=== PATIENT | male | born 1980 | race Hispanic/Latino ===

== ENCOUNTER 2017-04-04 10:01 | Emergency (ER) | payer OTHER ==
[2017-04-04 11:07] LABS: Mean Corpuscular HGB Conc 36 % (32-34); Mean Corpuscular Hemoglobin 37 pg (28-32); Mean Corpuscular Volume 104 fl (84-94); Platelet Count 239 K/mm3 (140-440); Red Blood Count 5.05 M/mm3 (3.65-5.03); Red Cell Distribution Width 14.9 % (13.2-15.2)
[2017-04-04 11:20] LABS: Hematocrit 52.7 % (35.5-45.6); Hemoglobin 18.7 gm/dl (11.8-15.2)
[2017-04-04 11:29] LABS: Albumin 4.4 g/dL (3.9-5); BUN/Creatinine Ratio 18; Blood Urea Nitrogen 9 mg/dL (9-20); Calcium 8.9 mg/dL (8.4-10.2); Hemolysis Index 97
[2017-04-04 11:31] LABS: Alanine Aminotransferase 91 units/L (7-56); Bilirubin,Direct < 0.2 mg/dL (0-0.2)
[2017-04-04] MEDS ORDERED: HALDOL IM PRN (12:02)
[2017-04-04] MEDS ORDERED: ATIVAN IM PRN (12:02)
[2017-04-04 13:03] LABS: Bilirubin,Urine NEG (Negative); Blood,Urine NEG (Negative); Color,Urine Yellow (Yellow); Protein,Urine <15 mg/dL mg/dL (Negative); RBC,Urine < 1.0 /HPF (0.0-6.0); WBC,Urine < 1.0 /HPF (0.0-6.0)
[2017-04-04 13:11] LABS: Amphetamine Screen,Urine PRESUMPTIVE NEGATIVE; Benzodiazepines Screen,Urine PRESUMPTIVE NEGATIVE; Cannabinoid Screen,Urine PRESUMPTIVE NEGATIVE; Cocaine Screen,Urine PRESUMPTIVE NEGATIVE; Methadone Screen,Urine PRESUMPTIVE NEGATIVE; Opiate Screen,Urine PRESUMPTIVE NEGATIVE
--- NOTE | 2017-04-04 13:26 | Emergency Department Report ---
ED General Adult HPI - General Chief complaint: Psych Stated complaint: BLOOD IN STOOL/HAND SWELLING Time Seen by Provider: 04/04/17 12:59 Source: patient Mode of arrival: Ambulatory Limitations: Other (patient has alcohol intoxication on board. Patient is a poor historian) - History of Present Illness Initial comments: This is a 37-year-old male who was previously unknown to this provider. He presents to the ER with an initial complaint of alcohol intoxication. He also endorses intermittent rectal bleeding for years. He also endorses intermittent swelling of his leg for years. He cannot describe exacerbating or relieving factors. He also complains of suicidality which he is indicating is chronic. -: week(s), month(s), year(s) Location: left, right, lower extremity Improves with: none Worsens with: none Associated Symptoms: weakness. denies: chest pain, cough, diaphoresis, fever/ chills, loss of appetite, malaise, nausea/vomiting, shortness of breath, syncope - Related Data Allergies Allergy/AdvReac Type Severity Reaction Status Date / Time No Known Allergies Allergy Unverified 04/04/17 10:31 ED Review of Systems ROS: Stated complaint: BLOOD IN STOOL/HAND SWELLING Other details as noted in HPI ED Past Medical Hx - Past Medical History Previous Medical History?: Yes Hx Hypertension: Yes Additional medical history: Hx of anxiety - Surgical History Past Surgical History?: No - Social History Smoking Status: Current Every Day Smoker Substance Use Type: Alcohol ED Physical Exam - General Limitations: Other (patient has alcohol intoxication on board) General appearance: alert, appears intoxicated - Head Head exam: Present: atraumatic, normocephalic - Eye Eye exam: Present: normal appearance, EOMI. Absent: nystagmus - ENT ENT exam: Present: normal exam, normal orophraynx, mucous membranes moist, normal external ear exam - Neck Neck exam: Present: normal inspection, full ROM - Respiratory Respiratory exam: Present: normal lung sounds bilaterally. Absent: respiratory distress - Cardiovascular Cardiovascular Exam: Present: normal rhythm, tachycardia, normal heart sounds. Absent: systolic murmur, diastolic murmur, rubs, gallop - GI/Abdominal GI/Abdominal exam: Present: soft, normal bowel sounds. Absent: distended, tenderness, guarding, rebound, rigid, pulsatile mass - Rectal Rectal exam: Present: normal inspection, normal rectal tone, heme (-) stool - Extremities Exam Extremities exam: Present: normal inspection, full ROM, normal capillary refill. Absent: pedal edema, joint swelling, calf tenderness - Back Exam Back exam: Present: normal inspection, full ROM. Absent: tenderness, CVA tenderness (R), paraspinal tenderness, vertebral tenderness - Neurological Exam Neurological exam: Present: CN II-XII intact, normal gait, other (Extraocular movements intact. Tongue midline. No facial droop. Facial sensation intact to light touch in the V1, V2, V3 distribution bilaterally. 5 and 5 strength in 4 extremities.. Sensation is intact to light touch in 4 extremities.). Absent : motor sensory deficit - Psychiatric Psychiatric exam: Present: anxious, suicidal ideation. Absent: homicidal ideation - Skin Skin exam: Present: warm, dry, intact, normal color. Absent: rash ED Course Vital Signs 04/04/17 10:24 Temperature 97.4 F L Pulse Rate 114 H Respiratory 20 Rate Blood Pressure 203/137 O2 Sat by Pulse 94 Oximetry - Reevaluation(s) Reevaluation #1: 04/04/17 15:32 Differential diagnosis, including but not limited to: Intracranial injury, alcohol intoxication, active bleeding, anal fissure, dependent edema Assessment and plan: 37-year-old male with multiple complaints which has been present for months to years. Objectively speaking, there is no discernible edema or palpable cord on his lower extremities, no anal fissures ejected, no rectal bleeding is detected on exam, patient guaiac-negative. Noncontrast CT scan of the brain is cervical spine negative, laboratory studies unremarkable, serum toxicology screen unremarkable. Patient endorsed some passive suicidality. He is placed on a 1013. Patient observed in the ER for hours without clinical decompensation, he was given Haldol and Ativan to facilitate cooperation and diagnostic workup. At this point in time, there does not appear to be in immediate medical contraindication to psychiatric admission/evaluation, consultation. ED Medical Decision Making - Lab Data Result diagrams: 04/04/17 10:46 04/04/17 10:46 Vital Signs 04/04/17 10:24 Temperature 97.4 F L Pulse Rate 114 H Respiratory 20 Rate Blood Pressure 203/137 O2 Sat by Pulse 94 Oximetry Lab Results 04/04/17 04/04/17 04/04/17 Range/Units 10:46 10:46 10:46 WBC 8.0 (4.5-11.0) K/mm3 RBC 5.05 H (3.65-5.03) M/mm3 Hgb 18.7 H (11.8-15.2) gm/dl Hct 52.7 H (35.5-45.6) % MCV 104 H (84-94) fl MCH 37 H (28-32) pg MCHC 36 H (32-34) % RDW 14.9 (13.2-15.2) % Plt Count 239 (140-440) K/mm3 Sodium 143 (137-145) mmol/L Potassium 4.3 (3.6-5.0) mmol/L Chloride 100.2 (98-107) mmol/L Carbon Dioxide 26 (22-30) mmol/L Anion Gap 21 mmol/L BUN 9 (9-20) mg/dL Creatinine 0.5 L (0.8-1.5) mg/dL Estimated GFR > 60 ml/min BUN/Creatinine Ratio 18 % Glucose 95 (75-100) mg/dL Calcium 8.9 (8.4-10.2) mg/dL Total Bilirubin 0.40 (0.1-1.2) mg/dL Direct Bilirubin < 0.2 (0-0.2) mg/dL Indirect Bilirubin 0.2 mg/dL AST 91 H (5-40) units/L ALT 91 H (7-56) units/L Alkaline Phosphatase 126 (35-129) units/L Total Creatine Kinase (55-170) units/L Total Protein 7.6 (6.3-8.2) g/dL Albumin 4.4 (3.9-5) g/dL Albumin/Globulin Ratio 1.4 % Urine Color (Yellow) Urine Turbidity (Clear) Urine pH (5.0-7.0) Ur Specific [place] (1.003-1.030) Urine Protein (Negative) mg/dL Urine Glucose (UA) (Negative) mg/dL Urine Ketones (Negative) mg/dL Urine Blood (Negative) Urine Nitrite (Negative) Urine Bilirubin (Negative) Urine Urobilinogen (<2.0) mg/dL Ur Leukocyte Esterase (Negative) Urine WBC (Auto) (0.0-6.0) /HPF Urine RBC (Auto) (0.0-6.0) /HPF U Epithel Cells (Auto) (0-13.0) /HPF Salicylates (2.8-20.0) mg/dL Urine Opiates Screen Urine Methadone Screen Acetaminophen (10.0-30.0) ug/mL Ur Barbiturates Screen Ur Phencyclidine Scrn Ur Amphetamines Screen U Benzodiazepines Scrn Urine Cocaine Screen U Marijuana (THC) Screen Drugs of Abuse Note Plasma/Serum Alcohol (0-0.07) % Blood Type O POSITIVE Antibody Screen Negative 04/04/17 04/04/17 04/04/17 Range/Units 10:46 10:46 10:46 WBC (4.5-11.0) K/mm3 RBC (3.65-5.03) M/mm3 Hgb (11.8-15.2) gm/dl Hct (35.5-45.6) % MCV (84-94) fl MCH (28-32) pg MCHC (32-34) % RDW (13.2-15.2) % Plt Count (140-440) K/mm3 Sodium (137-145) mmol/L Potassium (3.6-5.0) mmol/L Chloride (98-107) mmol/L Carbon Dioxide (22-30) mmol/L Anion Gap mmol/L BUN (9-20) mg/dL Creatinine (0.8-1.5) mg/dL Estimated GFR ml/min BUN/Creatinine Ratio % Glucose (75-100) mg/dL Calcium (8.4-10.2) mg/dL Total Bilirubin (0.1-1.2) mg/dL Direct Bilirubin (0-0.2) mg/dL Indirect Bilirubin mg/dL AST (5-40) units/L ALT (7-56) units/L Alkaline Phosphatase (35-129) units/L Total Creatine Kinase (55-170) units/L Total Protein (6.3-8.2) g/dL Albumin (3.9-5) g/dL Albumin/Globulin Ratio % Urine Color (Yellow) Urine Turbidity (Clear) Urine pH (5.0-7.0) Ur Specific [place] (1.003-1.030) Urine Protein (Negative) mg/dL Urine Glucose (UA) (Negative) mg/dL Urine Ketones (Negative) mg/dL Urine Blood (Negative) Urine Nitrite (Negative) Urine Bilirubin (Negative) Urine Urobilinogen (<2.0) mg/dL Ur Leukocyte Esterase (Negative) Urine WBC (Auto) (0.0-6.0) /HPF Urine RBC (Auto) (0.0-6.0) /HPF U Epithel Cells (Auto) (0-13.0) /HPF Salicylates < 0.3 L (2.8-20.0) mg/dL Urine Opiates Screen Urine Methadone Screen Acetaminophen < 15.0 (10.0-30.0) ug/mL Ur Barbiturates Screen Ur Phencyclidine Scrn Ur Amphetamines Screen U Benzodiazepines Scrn Urine Cocaine Screen U Marijuana (THC) Screen Drugs of Abuse Note Plasma/Serum Alcohol 0.34 H (0-0.07) % Blood Type Antibody Screen 04/04/17 04/04/17 04/04/17 Range/Units 10:46 Unknown Unknown WBC (4.5-11.0) K/mm3 RBC (3.65-5.03) M/mm3 Hgb (11.8-15.2) gm/dl Hct (35.5-45.6) % MCV (84-94) fl MCH (28-32) pg MCHC (32-34) % RDW (13.2-15.2) % Plt Count (140-440) K/mm3 Sodium (137-145) mmol/L Potassium (3.6-5.0) mmol/L Chloride (98-107) mmol/L Carbon Dioxide (22-30) mmol/L Anion Gap mmol/L BUN (9-20) mg/dL Creatinine (0.8-1.5) mg/dL Estimated GFR ml/min BUN/Creatinine Ratio % Glucose (75-100) mg/dL Calcium (8.4-10.2) mg/dL Total Bilirubin (0.1-1.2) mg/dL Direct Bilirubin (0-0.2) mg/dL Indirect Bilirubin mg/dL AST (5-40) units/L ALT (7-56) units/L Alkaline Phosphatase (35-129) units/L Total Creatine Kinase 54 L (55-170) units/L Total Protein (6.3-8.2) g/dL Albumin (3.9-5) g/dL Albumin/Globulin Ratio % Urine Color Yellow (Yellow) Urine Turbidity Clear (Clear) Urine pH 5.0 (5.0-7.0) Ur Specific [place] 1.018 (1.003-1.030) Urine Protein <15 mg/dl (Negative) mg/dL Urine Glucose (UA) Neg (Negative) mg/dL Urine Ketones Neg (Negative) mg/dL Urine Blood Neg (Negative) Urine Nitrite Neg (Negative) Urine Bilirubin Neg (Negative) Urine Urobilinogen 4.0 (<2.0) mg/dL Ur Leukocyte Esterase Neg (Negative) Urine WBC (Auto) < 1.0 (0.0-6.0) /HPF Urine RBC (Auto) < 1.0 (0.0-6.0) /HPF U Epithel Cells (Auto) 1.0 (0-13.0) /HPF Salicylates (2.8-20.0) mg/dL Urine Opiates Screen Presumptive negative Urine Methadone Screen Presumptive negative Acetaminophen (10.0-30.0) ug/mL Ur Barbiturates Screen Presumptive negative Ur Phencyclidine Scrn Presumptive negative Ur Amphetamines Screen Presumptive negative U Benzodiazepines Scrn Presumptive negative Urine Cocaine Screen Presumptive negative U Marijuana (THC) Screen Presumptive negative Drugs of Abuse Note Disclamer Plasma/Serum Alcohol (0-0.07) % Blood Type Antibody Screen - EKG Data 04/04/17 15:31 Normal sinus, 96 bpm, normal axis, QTC slightly prolonged, T-wave inversion V2, not having chest pain, not consistent with a STEMI - Radiology Data Radiology results: report reviewed, image reviewed Noncontrast CT scan of the brain and cervical spine negative for acute disease Critical care attestation.: If time is entered above; I have spent that time in minutes in the direct care of this critically ill patient, excluding procedure time. ED Disposition Clinical Impression: Alcohol intoxication, Medical clearance for psychiatric admission Disposition: [id number]/[id number] PSY HOSP/PSY UNIT Is pt being admited?: No Does the pt Need Aspirin: No Condition: Good Referrals: PRIMARY CARE, [Primary Care Provider] - 3-5 Days
--- NOTE | 2017-04-04 14:00 | Cat Scan Report ---
CT HEAD WITHOUT CONTRAST: HISTORY: Hypertension, pain. TECHNIQUE: Sequential 2.5mm CT images. COMPARISON: none. FINDINGS: Cerebral Parenchyma: Within normal limits. Cerebellum: Within normal limits. Brainstem: Within normal limits. Ventricles: Normal. Sella: Normal. Extra-axial spaces: Normal. Basal Cisterns: Normal. Intracranial Hemorrhage: None. Midline Shift: None. Calvarium: Normal. Sinuses: Normal. Mastoid Air Cells: Normal. Visualized Orbits: Normal. IMPRESSION: Cranial CT scan within normal limits.
--- NOTE | 2017-04-04 14:01 | Cat Scan Report ---
CT SCAN OF THE CERVICAL SPINE: HISTORY: Hypertension, pain. TECHNIQUE: Contiguous 1.25 mm axial images of the cervical spine were obtained. Sagittal and coronal reformatted images. FINDINGS: There is normal alignment of the cervical spine. The body, pedicles and posterior ligaments appear normal. No evidence of fracture or subluxation is seen. Moderate degenerative disc disease is noted at C6-7. The remaining levels are within normal limits. The spinal canal appears normal. The prevertebral soft tissues appear normal. IMPRESSION: Degenerative disc disease at C6-7. No acute process is noted.
[2017-04-05] MEDS ORDERED: CATAPRES PO ONE (08:25)
[2017-04-05] MEDS ORDERED: CATAPRES ONE (08:35)
--- NOTE | 2017-04-05 12:40 | Consultation ---
History of Present Illness - Reason for Consult Consult date: 04/05/17 Reason for consult: Mental Health Evaluation Requesting physician: MELISSA CEDENO - Chief Complaint Chief complaint: "I can quick drinking" - History of Present Psychiatric Illness 37 y.o. white male presenting to [facility] for Alcohol Intoxication. Per the record the patient stated being suicidal. Today the patient is calm and cooperative during the assessment. He stated that he is aware tof excessive alcohol intake can be unsafe. He stated that he has been drinking (etoh) for several years. He stated that he has quick drinking (etoh) in the past. He stated that he drink because he enjoys it, "nothing else." He stated experiencing some life stressors recently, but he can "handle it." He stated that he may have gestured being suicidal on admission, but stated, "I was probably drunk." He denies having a mental health dx (bipolar do, depression). He denies SI/HI's and AVH' s. He denies sleep disturbance and a poor appetite. He denies recreational drug use. He stated that he is willing to try rehab services for his alcoholism again. Medications and Allergies Allergies Allergy/AdvReac Type Severity Reaction Status Date / Time No Known Allergies Allergy Unverified 04/04/17 10:31 Active Meds: Active Medications Haloperidol Lactate (Haldol) 5 mg IM Q6HR PRN PRN Reason: Agitation Last Admin: 04/04/17 23:34 Dose: 5 mg Lorazepam (Ativan) 2 mg IM Q4HR PRN PRN Reason: Agitation Last Admin: 04/04/17 23:34 Dose: 2 mg Past psychiatric history - Past Medical History Past Medical History: other (Rectol Bleeding) Past Surgical History: No surgical history - past Psychiatric treatment and history psychiatric treatment history: Rehab services in the past. He denies a fam psy hx. - Social History Social history: Lives alone Mental Status Exam - Vital signs Last Vital Signs Temp 98.9 F 04/04/17 18:58 Pulse 72 04/05/17 08:40 Resp 18 04/04/17 18:58 BP 199/118 04/05/17 08:40 Pulse Ox 97 04/04/17 18:58 - Exam Narrative exam: MSE: Appearance: calm, cooperative Behavior: regular eye contact Speech: regular rate and tone Mood: "okay" Affect: congruent to mood Thought Process: linear Thought Content: denies SI/HI's and AVH's Motor Activity: ambulatory Cognition: A/O x3 Insight: appropriate Judgment: appropriate Results Result Diagrams: 04/04/17 10:46 04/04/17 10:46 Abnormal lab results 04/04/17 04/04/17 Range/Units 10:46 10:46 Total Creatine Kinase 54 L (55-170) units/L Salicylates < 0.3 L (2.8-20.0) mg/dL All other labs normal. Assessment and Plan Assessment and plan: Impression: Alcohol Intoxication on admission. Alcohol Use DO. Today the patient is calm and cooperative during the assessment. The patient is no threat to self. DDx: R/O Mood DO Recommendation/Plan: Rescind 1013. The patient given outpatient rehab services for [facility]. Discussed with patient the importance to abstain from alcohol consumption (etoh).
[2017-04-05 18:49] VITALS: BP 145/89
== END 2017-04-05 15:50 ==
LOC: ED 10:01
DX: F10.129 Alcohol abuse with intoxication, unspecified (principal); R45.851 Suicidal ideations; I10 Essential (primary) hypertension; F17.200 Nicotine dependence, unspecified, uncomplicated; F41.9 Anxiety disorder, unspecified; Z79.899 Other long term (current) drug therapy
CPT/HCPCS: 36415; 70450; 72125; 80048; 80074; 80307; 81001; 82271; 82550; 85027; 86850; 86900; 86901; 93005; 93010; 96372; 99284; G0480; J1630; J2060; 80320